=== PATIENT | male | born 1980 | race Caucasian/White ===

== ENCOUNTER 2017-06-14 23:37 | Emergency (ER) | payer OTHER ==
[~2017-06-14 23:37] MED LIST: CIPRO250 MG PO; COL100 PO; DORZOLAMIDE HYD10 M2 OU; METOPROLOL SUCC25 M1 PO; NORCO1 TA1 PO; PYRIDIUM200 MG PO; TRAMADOL HCL50 MG PO
[2017-06-15 01:21] VITALS: BP 138/84
== END 2017-06-15 01:21 | disposition home or self-care (01) ==
LOC: ED 23:37
DX: S01.01XA Laceration without foreign body of scalp, initial encounter (principal); I10 Essential (primary) hypertension; F99 Mental disorder, not otherwise specified; Z88.2 Allergy status to sulfonamides; Y04.8XXA Assault by other bodily force, initial encounter; Y93.89 Activity, other specified; Y92.89 Other specified places as the place of occurrence of the external cause; Y99.8 Other external cause status
CPT/HCPCS: 90715

== ENCOUNTER 2017-09-06 12:16 | Emergency (ER) | payer OTHER ==
[~2017-09-06] VITALS: Ht 172.7 cm; Wt 94.6 kg
[2017-09-06 13:10] LABS: PLATELET COUNT 336 x10^3mcL (130-400)
[2017-09-06 13:15] LABS: CALCIUM 8.7 mg/dL (8.5-10.1); CHLORIDE SERUM 104 mmol/L (98-107); GFR1 > 60 mL/min; GLUCOSE SERUM 116 mg/dL (74-106); POTASSIUM SERUM 3.8 mmol/L (3.5-5.1); SODIUM SERUM 139 mmol/L (136-145)
[2017-09-06 13:19] LABS: ALBUMIN 3.7 g/dL (3.4-5.0); ALKALINE PHOSPHATASE 72 U/L (46-116); ALT/SGPT 27 U/L (16-63); AST/SGOT 19 U/L (15-37); BILIRUBIN TOTAL 0.57 mg/dL (0.20-1.00); HDL CHOLESTEROL 49 mg/dL (40-60); PHOSPHOROUS 1.6 mg/dL (2.5-4.9); TOTAL PROTEIN, SERUM 7.3 g/dL (6.4-8.2); URIC ACID 5.1 mg/dL (3.5-7.2)
[2017-09-06 13:21] LABS: CHOLESTEROL 121 mg/dL (<200)
[2017-09-06 13:25] LABS: BASOPHIL % 3.1 % (0-2); RED CELL DISTRIBUTION WIDTH 11.4 % (11.5-14.5)
[2017-09-06 14:22] VITALS: BP 131/74
== END 2017-09-06 14:22 | disposition home or self-care (01) ==
LOC: ED 12:16
PROVIDERS: Emergency Medicine
DX: R07.89 Other chest pain (principal); R06.02 Shortness of breath; I10 Essential (primary) hypertension; K21.9 Gastro-esophageal reflux disease without esophagitis; Z88.2 Allergy status to sulfonamides
CPT/HCPCS: 36415; Q0092

== ENCOUNTER 2017-09-25 21:53 | Emergency (ER) | payer OTHER ==
[2017-09-26 00:39] VITALS: BP 141/93
== END 2017-09-26 00:40 | disposition home or self-care (01) ==
LOC: ED 21:53
DX: S90.31XA Contusion of right foot, initial encounter (principal); I10 Essential (primary) hypertension; K21.9 Gastro-esophageal reflux disease without esophagitis; V43.52XA Car driver injured in collision with other type car in traffic accident, initial encounter; Y93.I9 Activity, other involving external motion; Y92.410 Unspecified street and highway as the place of occurrence of the external cause; Y99.8 Other external cause status
CPT/HCPCS: Q0092

== ENCOUNTER 2017-10-12 09:00 | Emergency (ER) | payer OTHER ==
[~2017-10-12] VITALS: Ht 172.7 cm; Wt 90.7 kg
[2017-10-12 10:40] LABS: BASOPHIL % 0.1 % (0-2); PLATELET COUNT 314 x10^3mcL (130-400); RED CELL DISTRIBUTION WIDTH 12.5 % (11.5-14.5)
[2017-10-12 10:45] LABS: CALCIUM 8.9 mg/dL (8.5-10.1); CARBON DIOXIDE 29.4 mmol/L (21-32); CHLORIDE SERUM 104 mmol/L (98-107); CREATININE SERUM 0.8 mg/dL (0.7-1.3); GFR1 > 60 mL/min; GLUCOSE SERUM 100 mg/dL (74-106); POTASSIUM SERUM 3.8 mmol/L (3.5-5.1); SODIUM SERUM 141 mmol/L (136-145)
[2017-10-12 10:49] LABS: ALBUMIN 3.8 g/dL (3.4-5.0); ALKALINE PHOSPHATASE 85 U/L (46-116); ALT/SGPT 44 U/L (16-63); AMYLASE 90 U/L (25-115); AST/SGOT 26 U/L (15-37); BILIRUBIN TOTAL 0.7 mg/dL (0.20-1.00); LIPASE 121 IU/L (73-393); TOTAL PROTEIN, SERUM 7.7 g/dL (6.4-8.2)
[2017-10-12 11:00] VITALS: BP 143/91
== END 2017-10-12 11:46 | disposition home or self-care (01) ==
LOC: ED 09:00
PROVIDERS: Emergency Medicine
DX: R10.84 Generalized abdominal pain (principal); R11.2 Nausea with vomiting, unspecified; R19.7 Diarrhea, unspecified; K21.9 Gastro-esophageal reflux disease without esophagitis; I10 Essential (primary) hypertension; Z88.2 Allergy status to sulfonamides
CPT/HCPCS: 83880; J1885; J2405; J7030

== ENCOUNTER 2018-01-18 18:07 | Emergency (ER) | payer OTHER ==
[~2018-01-18] VITALS: Ht 172.7 cm; Wt 95.2 kg
[2018-01-18 18:26] VITALS: Ht 172.7 cm; Wt 95.2 kg
[2018-01-18 19:55] VITALS: BP 124/88
== END 2018-01-18 19:55 | disposition home or self-care (01) ==
LOC: ED 18:07
DX: L03.116 Cellulitis of left lower limb (principal); G89.29 Other chronic pain; M54.9 Dorsalgia, unspecified; K21.9 Gastro-esophageal reflux disease without esophagitis; I10 Essential (primary) hypertension; Z88.2 Allergy status to sulfonamides

== ENCOUNTER 2018-02-06 08:05 | Emergency (ER) | payer OTHER ==
[~2018-02-06] VITALS: Ht 172.7 cm; Wt 98.4 kg
[2018-02-06 08:11] VITALS: Ht 172.7 cm; Wt 98.4 kg
[2018-02-06 08:53] LABS: BASOPHIL % 0.4 % (0-2); PLATELET COUNT 349 x10^3mcL (130-400); RED CELL DISTRIBUTION WIDTH 12.9 % (11.5-14.5)
[2018-02-06 09:03] LABS: CALCIUM 10.1 mg/dL (8.5-10.1); CARBON DIOXIDE 25.5 mmol/L (21-32); CHLORIDE SERUM 101 mmol/L (98-107); GFR1 > 60 mL/min; GLUCOSE SERUM 104 mg/dL (74-106); POTASSIUM SERUM 4.2 mmol/L (3.5-5.1); SODIUM SERUM 139 mmol/L (136-145)
[2018-02-06 09:09] LABS: ALBUMIN 4.2 g/dL (3.4-5.0); ALKALINE PHOSPHATASE 74 U/L (46-116); ALT/SGPT 40 U/L (16-63); AST/SGOT 24 U/L (15-37); TOTAL PROTEIN, SERUM 8.1 g/dL (6.4-8.2)
[2018-02-06 11:15] VITALS: BP 127/88
== END 2018-02-06 11:15 | disposition home or self-care (01) ==
LOC: ED 08:05
PROVIDERS: Emergency Medicine
DX: J45.909 Unspecified asthma, uncomplicated (principal); J06.9 Acute upper respiratory infection, unspecified
CPT/HCPCS: J1100; J2060; J7613; J7644; Q0092

== ENCOUNTER 2018-07-20 02:08 | Emergency (ER) | payer MEDICAID ==
[~2018-07-20] VITALS: Ht 172.7 cm; Wt 95.3 kg
[2018-07-20 02:15] VITALS: Ht 172.7 cm; Wt 95.3 kg
[2018-07-20 04:23] VITALS: BP 156/115
== END 2018-07-20 04:23 | disposition home or self-care (01) ==
LOC: ED 02:08
DX: G89.29 Other chronic pain (principal); M54.5 Low back pain; Z88.2 Allergy status to sulfonamides; K21.9 Gastro-esophageal reflux disease without esophagitis; I10 Essential (primary) hypertension
CPT/HCPCS: J1885

== ENCOUNTER 2018-08-03 00:02 | Emergency (ER) | payer OTHER ==
[~2018-08-03] VITALS: Ht 172.7 cm; Wt 93.0 kg
[2018-08-03 00:13] VITALS: Ht 172.7 cm; Wt 93.0 kg
[2018-08-03 01:49] LABS: microscopic required? NO
[2018-08-03 02:12] LABS: UA SPECIFIC GRAVITY >=1.030 (1.005-1.035); urine erythrocyte NEGATIVE (NEGATIVE)
[2018-08-03 02:20] LABS: AMPHETAMINE QUAL UR POSITIVE (See below)
[2018-08-03 02:24] VITALS: BP 148/99
== END 2018-08-03 02:24 | disposition home or self-care (01) ==
LOC: ED 00:02
PROVIDERS: Emergency Medicine
DX: M54.5 Low back pain (principal); F15.10 Other stimulant abuse, uncomplicated; I10 Essential (primary) hypertension; K21.9 Gastro-esophageal reflux disease without esophagitis; G89.29 Other chronic pain; Z98.890 Other specified postprocedural states; Z88.2 Allergy status to sulfonamides; Z48.00 Encounter for change or removal of nonsurgical wound dressing
CPT/HCPCS: J1885

== ENCOUNTER 2018-12-13 16:22 | Emergency (ER) | payer OTHER ==
[~2018-12-13] VITALS: Ht 172.7 cm; Wt 104.8 kg
[2018-12-13 16:53] VITALS: Ht 172.7 cm; Wt 104.8 kg
[2018-12-13 18:27] VITALS: BP 149/102
== END 2018-12-13 18:28 | disposition home or self-care (01) ==
LOC: ED 16:22
DX: L60.0 Ingrowing nail (principal); L03.032 Cellulitis of left toe; K21.9 Gastro-esophageal reflux disease without esophagitis; G89.29 Other chronic pain; M54.9 Dorsalgia, unspecified; I10 Essential (primary) hypertension; Z88.2 Allergy status to sulfonamides
CPT/HCPCS: J1885

== ENCOUNTER 2019-11-26 05:24 | Emergency (ER) | payer OTHER ==
[~2019-11-26] VITALS: Ht 172.7 cm; Wt 129.3 kg
[2019-11-26 05:46] VITALS: Ht 172.7 cm; Wt 129.3 kg
[2019-11-26 07:53] VITALS: BP 138/102
== END 2019-11-26 09:11 | disposition left against medical advice (07) ==
LOC: ED 05:24
DX: Z53.21 Procedure and treatment not carried out due to patient leaving prior to being seen by health care provider (principal)
CPT/HCPCS: 87804

== ENCOUNTER 2020-01-08 20:51 | Emergency (ER) | payer OTHER ==
[~2020-01-08] VITALS: Ht 172.7 cm; Wt 100.7 kg
[2020-01-08 21:01] VITALS: Ht 172.7 cm; Wt 100.7 kg
[2020-01-08 22:52] VITALS: BP 126/87
== END 2020-01-08 22:52 | disposition home or self-care (01) ==
LOC: ED 20:51
DX: J20.9 Acute bronchitis, unspecified (principal); F17.210 Nicotine dependence, cigarettes, uncomplicated; G89.29 Other chronic pain; K21.9 Gastro-esophageal reflux disease without esophagitis; I10 Essential (primary) hypertension; Z88.2 Allergy status to sulfonamides
CPT/HCPCS: 99406

== ENCOUNTER 2020-01-22 14:33 | Emergency (ER) | payer OTHER ==
[~2020-01-22] VITALS: Ht 167.6 cm; Wt 93.0 kg
[2020-01-22 15:23] VITALS: BP 140/96; Ht 167.6 cm; Wt 93.0 kg
== END 2020-01-22 16:41 | disposition home or self-care (01) ==
LOC: ED 14:33
DX: K40.90 Unilateral inguinal hernia, without obstruction or gangrene, not specified as recurrent (principal); I10 Essential (primary) hypertension; K21.9 Gastro-esophageal reflux disease without esophagitis; G89.29 Other chronic pain; Z88.2 Allergy status to sulfonamides

== ENCOUNTER 2020-02-08 21:42 | Emergency (ER) | payer OTHER ==
[~2020-02-08] VITALS: Ht 172.7 cm; Wt 98.9 kg
[2020-02-08 21:47] VITALS: Ht 172.7 cm; Wt 98.9 kg
[2020-02-08 22:32] VITALS: BP 157/105
== END 2020-02-08 22:32 | disposition home or self-care (01) ==
LOC: ED 21:42
DX: J06.9 Acute upper respiratory infection, unspecified (principal); G89.29 Other chronic pain; I10 Essential (primary) hypertension; K21.9 Gastro-esophageal reflux disease without esophagitis; Z88.2 Allergy status to sulfonamides

== ENCOUNTER 2020-03-19 20:57 | Emergency (ER) | payer OTHER ==
[~2020-03-19] VITALS: Ht 172.7 cm; Wt 113.4 kg
[2020-03-19 21:04] VITALS: BP 128/74; Ht 172.7 cm; Wt 113.4 kg
== END 2020-03-19 22:24 | disposition home or self-care (01) ==
LOC: ED 20:57
DX: K40.90 Unilateral inguinal hernia, without obstruction or gangrene, not specified as recurrent (principal); I10 Essential (primary) hypertension; K21.9 Gastro-esophageal reflux disease without esophagitis; G89.29 Other chronic pain; M54.9 Dorsalgia, unspecified; Z88.2 Allergy status to sulfonamides